=== PATIENT | male | born 1995 | race Caucasian/White ===

== ENCOUNTER 2019-08-03 12:14 | Inpatient (IN) | payer OTHER ==
[~2019-08-03] VITALS: Ht 177.8 cm; Wt 80.1 kg
--- NOTE | ~2019-08-03 | EKG ---
[place], [place] ELECTROCARDIOGRAM REPORT NAME: MAYRA ALEX UNIT #: [id number] ROOM: 509 DOCTOR: SHELBI DRAFT REPORT BIRTHDATE: [birth year] [facility] Test Date: 2019-08-03 Test Time: 14:54:20 Pat Name: MAYRA ALEX Department: Room: 509 Gender: M Mechanic Foreman: Alexandra Villegas : 1995 Requested By: SHANIKA DODGE Order Number: [id number] Reading MD: Damaso Lane MD Measurements Intervals [place] Rate: 79 P: 79 RI: 189 QRS: 93 QRSD: 99 T: 58 QT: 406 QTc: 466 Interpretive Statements Sinus rhythm Right axis deviation No previous ECG available for comparison Electronically Signed On 08-04-2019 4:32:[address] MD CM:EKGRPT:ELECTROCARDIOGRAM REPORT [id number] SHANIKA MARIO DRAFT REPORT SHANIKA ESCALANTE
[2019-08-03 03:40] VITALS: BP 82/46
[2019-08-03 03:50] VITALS: BP 82/46
[2019-08-03 12:16] VITALS: BP 130/75
[2019-08-03 12:57] LABS: BILIRUBIN NEGATIVE (NEGATIVE); BLOOD NEGATIVE (NEGATIVE); CLARITY SL CLOUDY (CLEAR); COLOR YELLOW (YELLOW); GLUCOSE NEGATIVE (NEGATIVE); KETONE 2+ (NEGATIVE); LEUKO ESTERASE NEGATIVE (NEGATIVE); NITRITE NEGATIVE (NEGATIVE)
[2019-08-03 13:03] LABS: URINE AMPHETAMINES < 1000 (1000ng/ml); URINE BARBITURATES < 200 (200ng/ml); URINE BENZODIAZEPINES < 200 (200ng/ml); URINE CANNABINOIDS (THC) < 50 (50ng/ml); URINE COCAINE > 300 (300ng/ml); URINE METHADONE < 300 (300ng/ml); URINE OPIATES < 300 (300ng/ml); URINE PHENCYCLIDINE < 25 (25ng/ml)
[2019-08-03 13:16] LABS: BACTERIA TRACE; EPITHELIAL CELLS 0-2
--- NOTE | 2019-08-03 13:27 | NUR ---
PATIENT MEETS [facility]. PATIENT WAS SEEN IN [place] OFFICE. CINA=20. PATIENT IS WANTING TO FOLLOW UP WITH INTENSIVE OUTPATIENT TREATMENT FOR HIS AFTERCARE PLAN. PA STAFF WILL PROVIDE PATIENT WITH REFERRAL OPTIONS. LAVON MORA B.A. PROVIDER SERVICE REPRESENTATIVE
[2019-08-03 14:04] LABS: BASO % 0.2 % (0.0-1.0); EOS % 0.1 % (1.0-4.0); HEMATOCRIT 37.8 % (42.0-52.0); HEMOGLOBIN 12.1 g/dl (14.0-18.0); LYMPH # 1.7 10*3/uL (1.3-4.4); LYMPH % 13.5 % (27.0-41.0); MEAN CELL VOLUME 64.9 fl (80.0-94.0); MEAN CORPUSCULAR HGB 20.8 pg (27.0-31.0); MEAN PLATELET VOLUME 8.7 fl (9.6-12.3); MONO # 1.1 10*3/uL (0.1-1.0); MONO % 8.9 % (3.0-9.0); NEUT # 9.4 10*3/uL (2.3-7.9); NEUT % 76.8 % (47.0-73.0); PLATELET COUNT AUTOMATED 412 10*3/uL (130-400); RED BLOOD COUNT 5.82 10*6/uL (4.50-5.90); RED CELL DISTRI WIDTH 15.7 % (0-14.5); WHITE BLOOD COUNT 12.2 10*3/uL (4.8-10.8)
[2019-08-03 14:21] LABS: ALBUMIN 4.1 gm/dl (3.1-4.5); ALKALINE PHOSPHATASE 96 U/L (45-117); BUN 14 mg/dl (7-24); CHLORIDE 100 mmol/L (98-107); CREATININE 1.04 mg/dL (0.70-1.30); LIPASE 199 U/L (73-393); POTASSIUM 3.8 mmol/L (3.5-5.1); SGOT/AST 17 IU/L (3-35); SGPT/ALT 39 U/L (12-78); SODIUM 135 mmol/L (136-145); TOTAL PROTEIN 8.4 gm/dL (6.4-8.2)
[2019-08-03 14:31] LABS: ACETAMINOPHEN (TYLENOL) < 10.0 ug/ml (10-30); ETHYL ALCOHOL < 3.0 mg/dl (<3)
[2019-08-03] MEDS ORDERED: BUDEPRION XL150 MG PO (18:28)
[2019-08-03] MEDS ORDERED: TRAZODONE50 MG PO (18:28)
[2019-08-03] MEDS ORDERED: LAMOTRIGINE25 M1 PO (18:28)
[2019-08-03] MEDS ORDERED: SUBOXONE 8 MG-1 EACH SL (18:29)
[2019-08-03 18:30] VITALS: BP 115/73
--- NOTE | 2019-08-03 18:44 | NUR ---
PT IS AN ED HOLD FOR TONIGHT.HE IS GETTING AGITATED.I NOTIFIED THE PHARMACIST BECAUSE WE DON'T NORMALLY CARRY THE [facility]S.PHARMACY SENT ME 2 DOSES OF SUBUTEX. THEY WILL ALSO SEND ADDITIONAL PRN. VISTARIL IS IN OUR PYXIS AND WILL BE GIVEN TO HELP CALM PT.SEE EMAR.---MARGARITA MORRIS RN
--- NOTE | 2019-08-03 19:01 | NUR ---
THERE IS NOW A BED AVAILABLE FOR THIS PATIENT.ROOM 509. REMAINING 4 MG SUBUTEX IS BEING RETURNED TO PHARMACY AT THIS TIME (THEY HAD SENT THE 0200 DOSE HERE BUT NOW PT WONT BE IN THIS ER AT THAT TIME.). PT WAS GIVEN HIS 1800 DOSE IN ER...SEE EMAR FOR TIMES. PT IS GETTING CALMER. HE IS GETTING IV ACCESS AT THIS TIME NEEDED FOR HIS MONITORED ADMISSION.--MARGARITA MORRIS RN
[2019-08-03 19:50] VITALS: BP 120/65
--- NOTE | 2019-08-03 19:50 | NUR ---
A 23, admitted to 5E, under the services of SUZY Warren DO with a diagnosis of SUBSTANCE ABUSE. 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 Patient arrived via wheel chair from ER. Monitor applied. Initial assessment completed. Vital signs taken and recorded. SUZY WARREN DO notified of admission to the unit. Orders received. See assessment for past medical history, medications and allergies. Patient and/or family oriented to unit. [facility] 5TH FLOOR visitation policy reviewed. Clothing/patient valuable form completed. RENÉ KELLER
[2019-08-03 20:00] VITALS: BP 111/71
--- NOTE | 2019-08-03 21:32 | NUR ---
NOTIFIED DR. WILSON PATIENT WANTS NICOTROL INHALER INSTEAD OF PATCH. SEE NEW ORDERS.
--- NOTE | 2019-08-03 23:30 | NUR ---
PATIENT SLEEPING, RESPIRATIONS EASY, NON LABORED. NO SIGNS OF DISTRESS. WILL CONTINUE TO MONITOR.
[2019-08-04] VITALS: BP 112/74
--- NOTE | 2019-08-04 02:50 | NUR ---
NOTIFEIED PT HAVING HOT/COLD SWEATS. REQUESTING CLONIDINE BE ORDERED. PER HE WILL PUT THE ORDER IN.
--- NOTE | 2019-08-04 02:56 | NUR ---
PATIENT C/O MUSCLE SPASMS. MEDICATED WITH ROBAXIN. WILL CHECK EFFECTIVENESS.
--- NOTE | 2019-08-04 03:50 | NUR ---
NOTIFIED OF MANUAL BP OF 82/46. CLONIDINE NOT GIVEN. WILL CONTINUE TO MONITOR.
--- NOTE | 2019-08-04 06:55 | NUR ---
Shift chart check completed.
[2019-08-04 06:59] VITALS: BP 96/58
--- NOTE | 2019-08-04 07:51 | NUR ---
Shift chart check completed.
--- NOTE | 2019-08-04 10:06 | NUR ---
TOP LEFT HAND MISSED INJECTION SITE FEELING MORE SWOLLEN & TENDER/ WARM COMPRESS APPIED & ENCOURAGED TO MOVE IT & ELEVATE. NO SIGNS OF REDNESS, DRAINAGE.
--- NOTE | 2019-08-04 10:16 | NUR ---
SLEEPING IN BED WITH NO C/O
--- NOTE | 2019-08-04 10:30 | NUR ---
DR REX WEINSTEIN
[2019-08-04 12:00] VITALS: BP 110/76
--- NOTE | 2019-08-04 14:53 | NUR ---
PATIENT IS WANTING TO FOLLOW UP WITH [facility] FOR OUTPATIENT TREATMENT. LAVON MORA B.A. TERRITORY DEVELOPMENT MANAGER
[2019-08-04 16:00] VITALS: BP 110/56
--- NOTE | 2019-08-04 18:18 | NUR ---
Patient resting. Responding to scheduled medications with fewer complaints of pain and anxiety. ROUTINE SUBUTEX GIVEN PER ORDERS. PT RESTING QUIETY
--- NOTE | 2019-08-04 19:48 | NUR ---
PATIENT MEDICATED WITH VISTARIL AND ROBAXIN FOR COMPLAINTS OF ANXIETY AND MUSCLE CRAMPS. WILL CHECK EFFECTIVENESS.
[2019-08-04 20:00] VITALS: BP 126/64
[2019-08-05] VITALS: BP 99/44
--- NOTE | 2019-08-05 03:48 | NUR ---
24 HR chart check completed.
[2019-08-05 07:32] LABS: ALBUMIN 3.3 gm/dl (3.1-4.5); ALKALINE PHOSPHATASE 77 U/L (45-117); BUN 12 mg/dl (7-24); CHLORIDE 108 mmol/L (98-107); CREATININE 1.16 mg/dL (0.70-1.30); POTASSIUM 4.3 mmol/L (3.5-5.1); SGOT/AST 14 IU/L (3-35); SGPT/ALT 34 U/L (12-78); SODIUM 139 mmol/L (136-145); TOTAL PROTEIN 6.9 gm/dL (6.4-8.2)
[2019-08-05 07:56] LABS: BASO # 0.1 10*3/uL (0.0-0.1); BASO % 0.9 % (0.0-1.0); EOS # 0.3 10*3/uL (0.0-0.4); EOS % 5.4 % (1.0-4.0); HEMATOCRIT 37.7 % (42.0-52.0); HEMOGLOBIN 11.5 g/dl (14.0-18.0); LYMPH # 2.4 10*3/uL (1.3-4.4); LYMPH % 43.8 % (27.0-41.0); MEAN CELL VOLUME 67.3 fl (80.0-94.0); MEAN CORPUSCULAR HGB 20.5 pg (27.0-31.0); MEAN CORPUSCULAR HGB CONC 30.5 g/dl (33.0-37.0); MEAN PLATELET VOLUME 9.1 fl (9.6-12.3); MONO # 0.9 10*3/uL (0.1-1.0); MONO % 16.8 % (3.0-9.0); NEUT # 1.8 10*3/uL (2.3-7.9); NEUT % 32.9 % (47.0-73.0); PLATELET COUNT AUTOMATED 374 10*3/uL (130-400); RED CELL DISTRI WIDTH 15.6 % (0-14.5); WHITE BLOOD COUNT 5.6 10*3/uL (4.8-10.8)
[2019-08-05 09:28] VITALS: BP 110/72
--- NOTE | 2019-08-05 12:08 | NUR ---
PATIENT IS WANTING TO FOLLOW UP WITH [facility] AT THEIR [facility] IN [place]. PATIENT HAS AN APPOINTMENT SCHEDULED FOR THURSDAY, [facility] 8AM TO NOON. PATIENT AGREES AND UNDERSTANDS HIS AFTERCARE PLAN. LAVON MORA B.A. BAR CAPTAIN
[2019-08-05 16:00] VITALS: BP 111/72
[2019-08-05 20:00] VITALS: BP 110/59
[2019-08-06] VITALS: BP 112/65
[2019-08-06] MEDS ORDERED: DOXYCYCLINE MO100 M1 PO (11:54)
--- NOTE | 2019-08-06 12:58 | NUR ---
Discharge instructions reviewed with patient/family. Patient receptive and verbalizes understanding. Follow-up care arranged. Written instructions given to patient/family. SHANIA DIEGO
== END 2019-08-06 13:00 | disposition home or self-care (01) | DRG 897 ==
LOC: ED 12:14 → EDHOLD 16:38 → 5E 16:38 → EDHOLD 16:39 → 5E 18:48
PROVIDERS: Physician Assistant; ADMIT Internal Medicine
DX: F11.23 Opioid dependence with withdrawal (principal); L03.114 Cellulitis of left upper limb; R65.10 Systemic inflammatory response syndrome (SIRS) of non-infectious origin without acute organ dysfunction; D47.3 Essential (hemorrhagic) thrombocythemia; D72.829 Elevated white blood cell count, unspecified; F14.10 Cocaine abuse, uncomplicated; Z82.49 Family history of ischemic heart disease and other diseases of the circulatory system; Z79.899 Other long term (current) drug therapy